=== PATIENT | female | born 1985 | race Caucasian/White ===

== ENCOUNTER 2016-09-17 06:28 | Outpatient (CLI) ==
[2014-08-21 15:49] VITALS: BMI 27.8
--- NOTE | 2016-09-17 13:40 | STRESSECHO ---
Date of Test: 09/17/16 Reason for Exam: HYPERTENSION Ordering Physician: [facility]--[place] Current Medications: PROZAC, HCTZ Physical Findings: S1, S2, NO S3 Resting EKG: SINUS RHYTHM/NO ACUTE CHANGES Target Heart Rate: 161/190 STAGE MPH/GRADE HEART RATE BPM BLOOD PRESSURE mmhg RHYTHM S-T SEGMENT +/- UP DOWN SYMPTOMS,COMMENTS At Rest 80 148/100 SR X NONE 1 1.7/10% 110 150/100 SR X NONE 2 2.5/12% 130 160/98 SR X NONE 3 3.4/14% 4 4.2/16% 5 5.0/18% Immediately after 152 186/112 SR X SHORT OF BREATH Durations of Exercise: 9:49 Maximum Heart Rate Reached: 152 Reason for Termination: SHORT OF BREATH 5 MIN POST EXERCISE: HR 78/BPM, BP 158/98 MMHG, SR, +/-, NO SYMPTOMS OR COMMENTS INTERPRETATION: 96% OXYGEN SATURATION WITH EXERCISE ON ROOM AIR METS 12.4 1. NO EVIDENCE OF ISCHEMIA BY ST-T WAVE 2. NO CHEST PAIN OR DISCOMFORT 3. BLOOD PRESSURE RESPONSE: HYPERTENSION AT REST AND POST EXERCISE 4. NO ARRHYTHMIAS BY ECHO: NORMAL LEFT VENTRICULAR CONTRACTILITY AT REST/POST EXERCISE MTDD
--- NOTE | 2016-09-17 13:43 | ECHOSTRESS ---
Date of Exam: 09/17/16 Ordering Physician: [facility] Reason for Echo: HYPERTENSION, STRESS TEST--NO ISCHEMIA M-Mode Normal Adult Results LV Dimensions Normal Adult Results AoV Opening excursions >1.6 LVEDD-base- 3.5-5.8 Ao root dimensions 2.0-3.7 LVESD-base- 3.1-4.6 L. Atrium dimensions 1.9-3.8 Post. Wall thickness 0.8-1.1 IV septum (thickness) 0.7-1.2 Post. Wall excursion 0.72-1.3 Septal motion Systolic motion R. Ventricular cavity 1.5-2.0 LVEF 60% Paradoxical septal wall motion 2-D: NORMAL LEFT VENTRICULAR CONTRACTILITY--RESTING AND POST EXERCISE M-MODE: MV: AV: TV: PV: CHAMBER SIZE: WALL MOTION: NORMAL LEFT VENTRICULAR CONTRACTILITY--RESTING AND POST EXERCISE PERICARDIUM: INTERPRETATION: 1. NORMAL LEFT VENTRICULAR CONTRACTILITY--RESTING AND POST EXERCISE MTDD
== END 2016-09-17 06:29 | disposition home or self-care (01) ==
LOC: CAR 06:28
PROVIDERS: ATTEND Physician Assistant Medical
DX: I10 Essential (primary) hypertension (principal)

== ENCOUNTER 2018-01-12 17:23 | Outpatient (CLI) ==
[2014-08-21 15:49] VITALS: BMI 27.8
--- NOTE | 2018-01-13 09:03 | DI ---
EXAM: Supine abdominal radiograph. HISTORY: Constipation. COMPARISON: None available. FINDINGS: Moderate amount of stool seen in the right colon. Normal amount of stool seen in the [place] of the colon. No dilated bowel loops are seen. Phleboliths noted in the pelvis. Osseous stru ctures are intact. IMPRESSION: Moderate amount of stool in the right colon.
== END 2018-01-12 17:24 | disposition home or self-care (01) ==
LOC: RAD 17:23
PROVIDERS: ATTEND Physician Assistant Medical
DX: K59.09 Other constipation (principal)

== ENCOUNTER 2018-11-03 09:25 | Emergency (ER) ==
[2018-11-03 09:31] VITALS: BP 137/97; TEMP 100; BMI 30.9
--- NOTE | 2018-11-03 09:42 | ED.PDOC ---
General ED Provider: Dr. CORKY YOO Chief Complaint: Nausea/Vomiting Stated Complaint: Nausea and vomiting/. Having body aches, sore throat and vomiting. Associated headache. Onset 48 hrs ago and has made no improvement. In addition she started Lisinopril 10mg daily. Time Seen by Physician: 09:40 Mode of Arrival: Walk-In Information Source: Patient Exam Limitations: No limitations Primary Care Provider: PEDRITO TAYLOR Nursing and Triage Documentation Reviewed and Agree: Yes Does patient meet sepsis criteria?: No System Inflammatory Response Syndrome: Not Applicable Sepsis Protocol: For patient's 13 years and over: Temp is 96.8 and below OR 101 and greater Pulse >90 BPM Resp >20/minute Acutely Altered Mental Status Are patient's symptoms suggestive of a new infection, such as: -Pneumonia -Skin, Soft Tissue -Endocarditis -UTI -Bone, Joint Infection -Implantable Device -Acute Abdominal Infection -Wound Infection -Meningitis -Blood Stream Catheter Infection -Unknown GI Complaint Exam - Vomiting/Diarrhea Complaint/Exam Onset/Duration: 1 DAY Symptoms Are: Still present Episodes of Vomiting over last 24 Hours: 3 Initial Severity: Moderate Current Severity: Moderate Character of Vomiting: Reports: Bilious (UNDIGESTED FOOD) Aggravating: Reports: Liquids Alleviating: Reports: None Associated Signs and Symptoms: Reports: Dizziness, Light-headedness Related History: Denies: Similar episode Last Oral Intake: THIS MORNING Non-GI Risk Factors: Reports: None Surgical Obstruction Risk Factors: Reports: None Related Surgical History: Reports: None Abdominal Findings: Present: None Differential Diagnoses: Viral Gastroenteritis Review of Systems - Review Of Systems Constitutional: Reports: Chills, Weakness Eyes: Reports: Other (LIGHT SENSITIVE) Ears, Nose, Mouth, Throat: Reports: Throat pain Respiratory: Reports: Cough Cardiac: Reports: No symptoms GI: Reports: Nausea, Vomiting : Reports: No symptoms Musculoskeletal: Reports: Muscle pain, Muscle stiffness Skin: Reports: No symptoms Neurological: Reports: Headache Endocrine: Reports: No symptoms Hematologic/Lymphatic: Reports: No symptoms All Other Systems: Reviewed and Negative Past Medical History - Past Medical History Previously Healthy: Yes Endocrine: Reports: Dyslipidemia Cardiovascular: Reports: Hypertension Respiratory: Reports: None Hematological: Reports: None Gastrointestinal: Reports: None Genitourinary: Reports: None Neuro/Psych: Reports: None Musculoskeletal: Reports: None Cancer: Reports: None Last Menstrual Period: 3 days ago - Surgical History General Surgical History: Reports: None - Family History Family History: Reports: None - Social History Smoking Status: Current every day smoker, Light tobacco smoker Hx Substance Use: No Alcohol Screening: None Physical Exam - Physical Exam Appearance: Ill-appearing, Obese Ill-appearing: Moderate Pain Distress: Mild Eyes: JONAH, EOMI, Conjunctiva clear ENT: Ears normal, Nose normal, Oropharynx normal, Erythema (PHARYNX) Neck: Supple Respiratory: Airway patent, Breath sounds clear, Breath sounds equal, Respirations nonlabored, Wheezes Cardiovascular: RRR, Pulses normal, No rub, No murmur GI/: Soft, Nontender, No masses, Bowel sounds normal, No Organomegaly Musculoskeletal: Normal strength, ROM intact, No edema, No calf tenderness Skin: Warm, Dry, Normal color Neurological: Sensation intact, Motor intact, Reflexes intact, Cranial nerves intact, Alert, Oriented Psychiatric: Affect appropriate, Mood appropriate Critical Care Note - Critical Care Note Total Time (mins): 0 Course - Course Hematology/Chemistry: 11/03/18 10:00 11/03/18 10:00 Orders, Labs, Meds: Lab Review 11/03/18 11/03/18 11/03/18 09:50 10:00 10:00 WBC 7.77 RBC 5.32 Hgb 14.7 Hct 42.3 MCV 79.5 L MCH 27.6 MCHC 34.8 RDW Coeff of Danielle 12.6 Plt Count 246 Immature Gran % (Auto) 0.3 Neut % (Auto) 73.7 Lymph % (Auto) 13.5 Ford % (Auto) 11.8 H Eos % (Auto) 0.1 Baso % (Auto) 0.6 Immature Gran # (Auto) 0.0 Neut # (Auto) 5.7 Lymph # (Auto) 1.1 Ford # (Auto) 0.9 Eos # (Auto) 0.0 Baso # (Auto) 0.1 Sodium 136.9 Potassium 3.19 L Chloride 103.0 Carbon Dioxide 25.6 Anion Gap 11.49 BUN 6.3 L Creatinine 0.62 Estimated GFR (MDRD) 112.00 BUN/Creatinine Ratio 10.16 Glucose 106.1 H Calcium 8.82 Total Bilirubin 0.53 AST 20.0 ALT 20.3 Alkaline Phosphatase 94.0 Total Protein 7.59 Albumin 4.12 Globulin 3.47 Albumin/Globulin Ratio 1.18 Influ A Molecular Assay Positive by naat H Influ B Molecular Assay Negative by naat Orders Category Date Time Status CBC W/ AUTO DIFF Stat LAB 11/03/18 10:00 Completed CMP [COMPREHENSIVE METABOLIC PANEL] Stat LAB 11/03/18 10:00 Completed FLU A & B MOLECULAR [FLU A/B MOLECULAR] Stat LAB 11/03/18 09:50 Completed RAPID STREP SCREEN [MOLECULAR GROUP A STREP] Stat LAB 11/03/18 09:50 Completed UA [URINALYSIS C & S IF INDICATED] Stat LAB 11/03/18 09:52 Uncollected URINE DRUG SCREEN (RAPID FOR ED) [DRUG SCREEN, URINE, LAB 11/03/18 09:52 Uncollected RAPID] Stat URINE Stat LAB 11/03/18 09:52 Uncollected Ketorolac Tromethamine [Toradol] MEDS 11/03/18 09:54 Discontinued 30 mg IM ONCE STA Ondansetron [Zofran Odt] MEDS 11/03/18 09:59 Discontinued 4 mg PO ONCE STA Potassium Chloride [K-Dur] MEDS 11/03/18 10:37 Stat 20 meq PO ONCE STA CHEST, 1V AP ONLY Stat RADS 11/03/18 10:41 Ordered Medications Discontinued Medications Generic Name Dose Route Start Last Admin Trade Name Freq PRN Reason Stop Dose Admin Ketorolac Tromethamine 30 mg 11/03/18 09:54 11/03/18 10:10 Toradol IM 11/03/18 09:55 30 mg ONCE STA Administration Ondansetron HCl 4 mg 11/03/18 09:59 11/03/18 10:10 Zofran Odt PO 11/03/18 10:00 4 mg ONCE STA Administration Potassium Chloride 20 meq 11/03/18 10:37 11/03/18 10:42 K-Dur PO 11/03/18 10:38 20 meq ONCE STA Administration Vital Signs: Temp Pulse Resp BP Pulse Ox 11/03/18 09:25 100 F H 105 H 20 137/97 H 98 Departure - Departure Time of Disposition: 10:30 Disposition: HOME SELF-CARE Discharge Problem: Influenza A, Gastroenteritis Discharge Problem: (Ruled Out): Gastroenteritis and colitis, viral Instructions: Influenza (ED), Gastroenteritis (ED) Condition: Fair Pt referred to PMD for follow-up: Yes (See PCP in 1 week) IPMP verified?: No Additional Instructions: CLear liq diet and advance as tolerated Take Zofran for nausea/vomiting Take Tamiflu for treatment of influenza Take Ibuprofen or TYlenol for headache , body aches or pain Prescriptions: Ondansetron [Zofran Odt] 4 mg PO Q8H PRN #7 tab.rapdis PRN Reason: Nausea / Vomiting Allergies/Adverse Reactions: Allergies aloe vera Adverse Reaction (Verified 11/03/18 09:32) codeine Adverse Reaction (Verified 11/03/18 09:32) Home Medications: Ambulatory Orders Lisinopril [Zestril] 10 mg PO DAILY 01/21/14 Ondansetron [Zofran Odt] 4 mg PO Q8H PRN #7 tab.rapdis 11/03/18 Oseltamivir Phosphate [Tamiflu] 75 mg PO BID #10 capsule 11/03/18 Disposition Discussed With: Patient, Family
[2018-11-03] MEDS ORDERED: TORADOL IM STA (09:54)
[2018-11-03] MEDS ORDERED: ZOFRAN ODT PO STA (09:59)
[2018-11-03] MEDS ORDERED: K-DUR PO STA (10:37)
--- NOTE | 2018-11-03 11:32 | DI ---
EXAM: Chest one view HISTORY: Cough and congestion COMPARISON: 07/17/2018 TECHNIQUE: Single view of the chest was performed FINDINGS: The lungs are clear. There is no pleural effusion or pneumothorax. The heart is normal i n size. The mediastinal contour is normal. There are no acute abnormalities of the bones. IMPRESSION: No acute cardiopulmonary process.
== END 2018-11-03 11:18 | disposition home or self-care (01) ==
LOC: ED 09:25
DX: R11.2 Nausea with vomiting, unspecified (principal); J02.9 Acute pharyngitis, unspecified; R51 Headache; R42 Dizziness and giddiness; R53.1 Weakness; Z72.0 Tobacco use; J11.1 Influenza due to unidentified influenza virus with other respiratory manifestations; K52.9 Noninfective gastroenteritis and colitis, unspecified
CPT/HCPCS: 36415; 80053; 85025; 87502; 87651; 96372; 99283

== ENCOUNTER 2019-01-03 10:45 | Emergency (ER) ==
[2019-01-03 10:57] VITALS: BP 172/104; TEMP 98; BMI 29.6
--- NOTE | 2019-01-03 11:37 | ED.PDOC ---
General ED Provider: Dr. ZANDRA YANES Chief Complaint: Rash Stated Complaint: RASH ON THE CHEST, ABDOMEN Time Seen by Physician: 11:00 Mode of Arrival: Walk-In Information Source: Patient Exam Limitations: No limitations Primary Care Provider: AUGUST ALCALA Nursing and Triage Documentation Reviewed and Agree: Yes Does patient meet sepsis criteria?: No System Inflammatory Response Syndrome: Not Applicable Sepsis Protocol: For patient's 13 years and over: Temp is 96.8 and below OR 101 and greater Pulse >90 BPM Resp >20/minute Acutely Altered Mental Status Are patient's symptoms suggestive of a new infection, such as: -Pneumonia -Skin, Soft Tissue -Endocarditis -UTI -Bone, Joint Infection -Implantable Device -Acute Abdominal Infection -Wound Infection -Meningitis -Blood Stream Catheter Infection -Unknown Skin Complaint Exam - Skin Rash/Itching Complaint/Exam Onset/Duration: 2 DAYS Symptoms Are: Still present Initial Severity: Mild Current Severity: Mild Location: CHEST AND ABDOMEN Aggravating: Reports: None Alleviating: Reports: None Associated Signs and Symptoms: Denies: Difficulty breathing, Fever, Chills Skin Findings: Present: Maculae, Papules Differential Diagnoses: Allergic Reaction, Poison [place] Review of Systems - Review Of Systems Constitutional: Reports: No symptoms Eyes: Reports: No symptoms Ears, Nose, Mouth, Throat: Reports: No symptoms Respiratory: Reports: No symptoms Cardiac: Reports: No symptoms GI: Reports: No symptoms : Reports: No symptoms Musculoskeletal: Reports: No symptoms Skin: Reports: Rash Neurological: Reports: No symptoms Endocrine: Reports: No symptoms Hematologic/Lymphatic: Reports: No symptoms All Other Systems: Reviewed and Negative Past Medical History - Past Medical History Previously Healthy: Yes Endocrine: Reports: Dyslipidemia Cardiovascular: Reports: Hypertension Respiratory: Reports: None Hematological: Reports: None Gastrointestinal: Reports: None Genitourinary: Reports: None Neuro/Psych: Reports: None Musculoskeletal: Reports: None Cancer: Reports: None Last Menstrual Period: 12/12/18 - Surgical History General Surgical History: Reports: None - Family History Family History: Reports: None - Social History Smoking Status: Current every day smoker, Light tobacco smoker Hx Substance Use: No Alcohol Screening: None Physical Exam - Physical Exam Appearance: Well-appearing, No pain distress, Well-nourished Eyes: JONAH, EOMI, Conjunctiva clear ENT: Ears normal, Nose normal, Oropharynx normal Respiratory: Airway patent, Breath sounds clear, Breath sounds equal, Respirations nonlabored Cardiovascular: RRR, Pulses normal, No rub, No murmur GI/: Soft, Nontender, No masses, Bowel sounds normal, No Organomegaly Musculoskeletal: Normal strength, ROM intact, No edema, No calf tenderness Skin: Warm, Dry (MACULOPAPULAR RASH ON THE CHEST AND ABDOMEN) Neurological: Sensation intact, Motor intact, Reflexes intact, Cranial nerves intact, Alert, Oriented Psychiatric: Affect appropriate, Mood appropriate Critical Care Note - Critical Care Note Total Time (mins): 0 Course - Course Vital Signs: Temp Pulse Resp BP Pulse Ox 01/03/19 10:53 98.0 F 100 H 20 172/104 H 99 Departure - Departure Time of Disposition: 11:37 Disposition: HOME SELF-CARE Discharge Problem: Pruritic rash Instructions: Acute Rash (ED) Condition: Good Pt referred to PMD for follow-up: Yes IPMP verified?: No Allergies/Adverse Reactions: Allergies aloe vera Adverse Reaction (Verified 01/03/19 10:56) codeine Adverse Reaction (Verified 01/03/19 10:56) Home Medications: Ambulatory Orders Lisinopril [Zestril] 20 mg PO DAILY 01/21/14 Disposition Discussed With: Patient
== END 2019-01-03 11:47 | disposition home or self-care (01) ==
LOC: ED 10:45
DX: R21 Rash and other nonspecific skin eruption (principal); L29.9 Pruritus, unspecified
CPT/HCPCS: 99282